=== PATIENT | female | born 1990 | race Caucasian/White ===

== ENCOUNTER 2017-12-22 15:12 | Emergency (ER) | payer MEDICAID ==
[~2017-12-22] VITALS: Ht 162.6 cm; Wt 63.6 kg
[2017-12-22 16:58] LABS: CALCIUM 8.7 mg/dL (8.5-10.1); CARBON DIOXIDE 29.5 mmol/L (21-32); CHLORIDE SERUM 106 mmol/L (98-107); CREATININE SERUM 0.4 mg/dL (0.6-1.0); GFR1 > 60 mL/min; GLUCOSE SERUM 97 mg/dL (74-106); POTASSIUM SERUM 3.5 mmol/L (3.5-5.1); SODIUM SERUM 142 mmol/L (136-145)
[2017-12-22 17:00] LABS: BASOPHIL % 0.2 % (0-2); PLATELET COUNT 330 x10^3mcL (130-400); RED CELL DISTRIBUTION WIDTH 13.1 % (11.5-14.5)
[2017-12-22 17:20] LABS: T3 TOTAL 5.36 ng/mL
[2017-12-22 17:30] LABS: FREE T4 3.23 ng/dL (0.76-1.46)
[2017-12-22 17:33] LABS: FREE THYROXINE INDEX 10.3 ug/dL (1.4-4.5); T4(THYROXINE) 23.5 ug/dL (4.7-13.3)
[2017-12-22 19:29] VITALS: BP 101/72
== END 2017-12-22 19:29 | disposition home or self-care (01) ==
LOC: ED 15:12
PROVIDERS: Emergency Medicine
DX: R00.2 Palpitations (principal); E05.90 Thyrotoxicosis, unspecified without thyrotoxic crisis or storm; R53.1 Weakness; Z88.5 Allergy status to narcotic agent
CPT/HCPCS: 84439; 85378; J1800; J7030; Q0092

== ENCOUNTER 2018-12-22 11:48 | Emergency (ER) | payer MEDICAID ==
[~2018-12-22] VITALS: Ht 157.5 cm; Wt 67.6 kg
[2018-12-22 11:53] VITALS: BP 125/81; Ht 157.5 cm; Wt 67.6 kg
== END 2018-12-22 12:22 | disposition home or self-care (01) ==
LOC: ED 11:48
DX: L03.116 Cellulitis of left lower limb (principal); Z88.6 Allergy status to analgesic agent; W57.XXXA Bitten or stung by nonvenomous insect and other nonvenomous arthropods, initial encounter; Y93.89 Activity, other specified; Y92.89 Other specified places as the place of occurrence of the external cause; Y99.8 Other external cause status